=== PATIENT | female | born 1940 | race Caucasian/White ===

== ENCOUNTER 2017-09-05 09:47 | Emergency (ER) | payer MEDICARE ==
[~2017-09-05] VITALS: Ht 165.1 cm; Wt 89.6 kg
[2017-09-05 09:58] VITALS: BP 178/99; PULSE 86; RESP 16; TEMP 98; O2SAT 95
[2017-09-05] MEDS ORDERED: LIDOCAINE 1%/EPINEPHrine 1:100,000 SOLN 30 ML VIAL ONE (10:24)
[2017-09-05] MEDS ORDERED: AMLO5TAB2 PO (10:28)
[2017-09-05] MEDS ORDERED: DOXA1TAB35 PO (10:28)
[2017-09-05] MEDS ORDERED: LEVO125T4 PO (10:28)
[2017-09-05] MEDS ORDERED: METF500T PO (10:28)
[2017-09-05] MEDS ORDERED: SPIR25TA PO (10:28)
[2017-09-05] MEDS ORDERED: ATOR20TA15 PO (10:28)
[2017-09-05] MEDS ORDERED: HYDR12.56 PO (10:28)
[2017-09-05] MEDS ORDERED: ASPI-516 CHEW (10:28)
[2017-09-05] MEDS ORDERED: LIDOCAINE 1%/EPINEPHrine 1:100,000 SOLN 20 ML VIAL INFIL ONE (10:30)
[2017-09-05] MEDS ORDERED: TETANUS/DIPHTHERIA TOXOID ADULT 0.5 ML VIAL IM ONE (10:30)
--- NOTE | 2017-09-05 10:39 | PD ---
HPI Chief Complaint: Laceration/Skin Injury Time Seen by Provider: 10:13 Travel History International Travel<30 days: No Contact w/Intl Traveler<30days: No Traveled to known affect area: No History of Present Illness HPI 76-year-old female that presents to the ED for evaluation of laceration to the right scalp. Patient states that this happened earlier today. Per patient about less than 2 hours ago. Per patient she accidentally hit a cabinet. She did not lose consciousness. She denies any numbness, tilling, weakness. Able to move all extremities. Per family member she is acting normal. Takes no blood thinners. Has a superficial laceration to her right scalp which is what she is concerned about. Some bleeding noted. Denies any blurry vision or double vision. Per patient the pain is 4 out of 10 on the wound. Otherwise no pain. PFSH Past Medical History High Cholesterol: Yes Diabetes: Yes Patient Takes Glucophage: Yes Hypertension: Yes Thyroid Disease: Yes Tetanus Vaccination: > 5 Years Social History Alcohol Use: No Tobacco Use: No Substance Use: No Allergies-Medications (Allergen,Severity, Reaction): Coded Allergies: No Known Allergies (Unverified , 09/05/17) Reported Meds & Prescriptions Reported Meds & Active Scripts Active Reported Aspirin 81 Mg Chew 81 Mg CHEW DAILY Doxazosin (Doxazosin Mesylate) 2 Mg Tab 2 Mg PO DAILY Atorvastatin (Atorvastatin Calcium) 20 Mg Tab 20 Mg PO HS Amlodipine (Amlodipine Besylate) 5 Mg Tab 5 Mg PO DAILY Metformin (Metformin HCl) 500 Mg Tab 500 Mg PO BIDPC Hydrochlorothiazide 12.5 Mg Tab 12.5 Mg PO DAILY Spironolactone 25 Mg Tab 25 Mg PO DAILY Levothyroxine (Levothyroxine Sodium) 125 Mcg Tab 125 Mcg PO DAILY Review of Systems Except as stated in HPI: all other systems reviewed are Neg Physical Exam Narrative GENERAL: SKIN: Warm and dry. HEAD: Atraumatic. Normocephalic. Has a superficial scalp laceration which is about 1.5 cm in diameter well approximated. Minimal pain and swelling noted. Some bleeding noted. About half centimeter deep. EYES: Pupils equal and round 4 mm right flank accommodation. No scleral icterus. No injection or drainage. ENT: No nasal bleeding or discharge. Mucous membranes pink and moist. Tongue is midline. No uvula deviation. NECK: Trachea midline. No JVD. CARDIOVASCULAR: Regular rate and rhythm. No murmurs, S3, S4. RESPIRATORY: No accessory muscle use. Clear to auscultation. Breath sounds equal bilaterally. GASTROINTESTINAL: Abdomen soft, non-tender, nondistended. Hepatic and splenic margins not palpable. MUSCULOSKELETAL: Extremities without clubbing, cyanosis, or edema. No obvious deformities. No lumbar, thoracic, cervical spine tenderness to palpation. Full range of motion of the upper and lower extremities bilaterally. 5 out of 5 strength bilaterally. Sensation intact bilaterally. Neurovascular intact. NEUROLOGICAL: Awake and alert. No obvious cranial nerve deficits. Motor grossly within normal limits. Five out of 5 muscle strength in the arms and legs. Normal speech. PSYCHIATRIC: Appropriate mood and affect; insight and judgment normal. Data Data Last Documented VS Vital Signs Date Time Temp Pulse Resp B/P (MAP) Pulse Ox O2 Delivery O2 Flow Rate FiO2 09/05/17 09:58 98.0 86 16 178/99 (125) 95 Room Air Orders Orders Wound Care (09/05/17 10:21) Lidocai-Epi 1%-1:100,000 Inj (Xylocaine- (09/05/17 10:30) Tetanus/Diphtheria Tox Adult (Tetanus/Di (09/05/17 10:30) Lidocai-Epi 1%-1:100,000 Inj (Xylocaine- (09/05/17 10:24) MDM Medical Decision Making Medical Screen Exam Complete: Yes Emergency Medical Condition: Yes Medical Record Reviewed: Yes Differential Diagnosis Laceration versus head injury versus abrasion Narrative Course 76-year-old female that presents to the ED for evaluation of injury to her head. Patient was properly examined and was found to have signs and symptoms which appeared to be very consistent laceration. Patient had very mild head injury with a superficial laceration. Patient is neurovascularly intact. Did offer patient was negative The Patient Declines at This Time. At This Time I think this is Reasonable As Patient Has No Neurological Deficits and Low Likelihood of Intracranial Injury. I do recommend xu. Patient agrees. Patient for to my note. Patient was told to get xu removed in one week. Follow with PCP. See ED worsening symptoms. Tylenol or Motrin for pain. Ice or warm compresses as needed. Procedures Procedure Narrative LACERATION LOCATION: right head LENGTH: 1.5 cm NUMBER OF STITCHES/XU: 3 xu REPAIR: The area of the laceration was prepped with Betadine and sterilely draped. The laceration was infiltrated with 1% Xylocaine. The wound was copiously irrigated and explored without evidence of foreign body, tendon injury or neurovascular injury. The wound was closed using sterile stapler. This was a 1 layer repair. A sterile dressing was applied. The patient was advised to keep the dressing clean and dry. Patient tolerated the procedure well. Diagnosis Primary Impression: Laceration of head Qualified Codes: S01.01XA - Laceration without foreign body of scalp, initial encounter Patient Instructions: General Instructions Additional Instructions: Wound care daily with soap and water. You can apply bandaid if needed. Neosporyn or OTC antibiotic ointment to area as needed twice a day for at least 2 weeks to help with scarring and prevent infection. Meoderma OTC for scarring if needed. Avoid sun exposure for 2 months as the sun could make scar darker and more noticeable. Get sutures removed in 7-10days. See ED if worst. Tylenol or motrin for pain as needed. ICe to the wound for the next 24 hours as needed for swelling and pain. Med/Other Pt SpecificInfo: Prescription(s) given, Wound Care Disposition: 01 DISCHARGE HOME Condition: Stable Aryan Rosa Sep 05, 2017 10:39
== END 2017-09-05 10:55 | disposition home or self-care (01) ==
LOC: PHEFT 09:47
DX: S01.01XA Laceration without foreign body of scalp, initial encounter (principal); E11.9 Type 2 diabetes mellitus without complications; E78.00 Pure hypercholesterolemia, unspecified; I10 Essential (primary) hypertension; W22.8XXA Striking against or struck by other objects, initial encounter; Z23 Encounter for immunization; Z79.84 Long term (current) use of oral hypoglycemic drugs
CPT/HCPCS: 12001; 90471; 90714